=== PATIENT | female | born 1990 | race Caucasian/White ===

== ENCOUNTER 2019-01-14 07:03 | Emergency (ER) | payer OTHER ==
[~2019-01-14] VITALS: Ht 162.6 cm; Wt 66.7 kg
[~2019-01-14 07:03] MED LIST: NOHOMEMEDICATIONS
[2019-01-14] MEDS ORDERED: PNV 29-1 TABLE1 EACH PO (07:11)
[2019-01-14 07:37] LABS: URINE BILIRUBIN NEGATIVE (Negative); URINE BLOOD NEGATIVE (Negative); URINE CLARITY CLEAR; URINE COLOR YELLOW; URINE GLUCOSE-RANDOM NEGATIVE (Negative); URINE KETONES NEGATIVE (Negative); URINE LEUKOCYTES-REFLEX 1+ (Negative); URINE NITRITE-REFLEX NEGATIVE (Negative); URINE PROTEIN NEGATIVE (Negative); URINE UROBILINOGEN 0.2 E.U./dl (0.2-1.0)
[2019-01-14 07:41] LABS: HEMATOCRIT 34.9 % (37.0-47.0); HEMOGLOBIN 11.9 gm/dL (12.0-15.0); MCH 26.7 pg (26.0-34.0); MCHC 34.1 g/dL (28.0-37.0); MCV 78.2 fL (80.0-100.0); MPV 9.2 fl. (7.2-11.1); RBC 4.46 mil/uL (4.20-5.00); RDW-CV 19.8 % (10.5-14.5); WBC 9.1 thou/uL (4.0-11.0)
[2019-01-14 07:46] LABS: CALCIUM 8.8 mg/dL (8.5-10.1); CREATININE 0.8 mg/dL (0.6-1.3); POTASSIUM 3.1 mmol/L (3.5-5.1)
[2019-01-14 07:55] LABS: BACTERIA-REFLEX 1-9 Few /HPF (None Seen); CASTS None Seen /LPF (None Seen); CRYSTALS None Seen /LPF (None Seen); MUCUS 0-3 Light strn/LPF (None Seen); SQUAMOUS 0-3 Few /LPF (0-3); URINE RBC 0-2 Rare /HPF (0-2); URINE WBC-REFLEX 0-5 Rare /HPF (0-5)
[2019-01-14] MEDS ORDERED: KEFLEX500 M1 PO (10:08)
[2019-01-14 10:20] VITALS: BP 129/65
== END 2019-01-14 10:21 | disposition home or self-care (01) ==
LOC: M.ERS 07:03
PROVIDERS: Personal Emergency Response Attendant
DX: O23.41 Unspecified infection of urinary tract in pregnancy, first trimester (principal); O00.01 Abdominal pregnancy with intrauterine pregnancy; O99.331 Smoking (tobacco) complicating pregnancy, first trimester; Z3A.14 14 weeks gestation of pregnancy